=== PATIENT | female | born 1955 | race Caucasian/White ===

== ENCOUNTER 2024-03-18 14:00 | Outpatient (CLI) | payer MEDICARE ==
[2024-03-18 15:58] LABS: #Eosinphils 0.92 10x3/uL (0.0-0.5); #Monocytes 0.77 10x3/uL (0.0-1.1); %Basophils 1.1 % (0.0-2.0); %Eosinophils 10.2 % (0.0-6.0); %Lymphocytes 18.2 % (18.0-47.0); %Monocytes 8.5 % (0.0-10.0); %Neutrophils 61.8 % (40.0-75.0); Hematocrit 38.5 % (34.9-44.5); Hemoglobin 12.4 g/dL (12.0-15.5); Mean Corpuscular HGB CONC 32.2 g/dL (32.0-36.0); Mean Corpuscular Hemoglobin 32.5 pg (27.0-33.0); Mean Corpuscular Volume 100.8 fL (81.6-98.3); Mean Platelet Volume 10.6 fL (7.4-10.4); Platelet Count 287 10x3/uL (150-450); RBC Distribution Width 13.3 % (11.5-14.5); Red Blood Cell (RBC) Count 3.82 10x6/uL (3.90-5.03); White Blood Cell (WBC) Count 9.1 10x3/uL (3.5-10.5)
== END 2024-03-18 14:01 | disposition home or self-care (01) ==
LOC: LABBT 14:00
PROVIDERS: ATTEND Orthopaedic Surgery
DX: Z01.818 Encounter for other preprocedural examination (principal); G56.21 Lesion of ulnar nerve, right upper limb
CPT/HCPCS: 85025; 93005; 93010

== ENCOUNTER 2024-03-20 05:43 | Day surgery (SDC) | payer MEDICARE ==
[2024-03-18 14:35] VITALS: BMI 22.8
[2024-03-20] MEDS ORDERED: Bupivacaine PF 0.5% 30 ML VIAL ONE (06:26)
[2024-03-20] MEDS ORDERED: Lidocaine 1% PF 5 ML VIAL ONE (06:26)
[2024-03-20] MEDS ORDERED: Vancomycin 1 GM/200 ML (FROZEN) BAG ONE (06:31)
[2024-03-20] MEDS ORDERED: Bupivacaine 0.25% HCL 30 ML VIAL ONE (07:00)
[2024-03-20] MEDS ORDERED: EPINEPHrine 1 MG/ML VIAL ONE (07:00)
== END 2024-03-20 09:31 | disposition home or self-care (01) ==
LOC: SDC 05:43
PROVIDERS: ATTEND Orthopaedic Surgery
PROC: 01N40ZZ Release Ulnar Nerve, Open Approach (ICD-10-PCS; principal; 2024-03-20)
DX: G56.21 Lesion of ulnar nerve, right upper limb (principal); K21.9 Gastro-esophageal reflux disease without esophagitis; J45.909 Unspecified asthma, uncomplicated; Z88.5 Allergy status to narcotic agent; Z88.1 Allergy status to other antibiotic agents; Z88.2 Allergy status to sulfonamides; Z88.8 Allergy status to other drugs, medicaments and biological substances; Z79.899 Other long term (current) drug therapy
CPT/HCPCS: 64415; 64718; A6223; J0665; J3370; J0171

== ENCOUNTER 2024-05-16 14:03 | Outpatient (CLI) | payer MEDICARE ==
[2024-05-16 16:27] LABS: #Basophils 0.03 10x3/uL (0.0-0.2); #Eosinphils Less than 0.03 10x3/uL (0.0-0.7); %Basophils 0.2 % (0.0-1.0); %Lymphocytes 7.6 % (21.0-51.0); %Monocytes 5.6 % (0.0-10.0); %Neutrophils 86.2 % (42.0-75.0); Hematocrit 32.2 % (36.0-47.0); Hemoglobin 10.4 g/dL (12.0-16.0); Mean Corpuscular HGB CONC 32.3 g/dL (32.0-36.0); Mean Corpuscular Hemoglobin 31.7 pg (27.0-31.0); Mean Corpuscular Volume 98.2 fL (78.0-98.0); Platelet Count 280 10x3/uL (130-400); RBC Distribution Width 12.6 % (11.5-14.5); Red Blood Cell (RBC) Count 3.28 mill/uL (4.20-5.40)
[2024-05-16 18:48] LABS: Chloride 107 mmol/L (98-107); Potassium 3.8 mmol/L (3.5-5.1); Sodium 140 mmol/L (136-145)
[2024-05-16 18:49] LABS: Calcium 8.8 mg/dL (7.8-10.44); Glucose 135 mg/dL (80-115)
[2024-05-16 18:51] LABS: Anion Gap 13 mmol/L (10-20); Carbon Dioxide 24 mmol/L (23-31)
[2024-05-16 18:53] LABS: Calc. Creatinine Clearance 0 mL/min (70-130); Estimated GFR 95
[2024-05-16 18:54] LABS: BUN (Urea Nitrogen) 11 mg/dL (9.8-20.1)
== END 2024-05-16 14:04 | disposition home or self-care (01) ==
LOC: LABBT 14:03
PROVIDERS: ATTEND Orthopaedic Surgery
DX: Z01.818 Encounter for other preprocedural examination (principal); Z98.890 Other specified postprocedural states
CPT/HCPCS: 80048; 85025; 93005; 93010

== ENCOUNTER 2024-05-23 09:47 | Day surgery (SDC) | payer MEDICARE ==
[2024-05-16 14:32] VITALS: BMI 22.8
[2024-05-23] MEDS ORDERED: Sodium Chloride 0.9% 100 ML ONE (10:55)
[2024-05-23] MEDS ORDERED: Tranexamic Acid 1,000 MG/10 ML VIAL ONE (10:55)
[2024-05-23] MEDS ORDERED: Vancomycin 1 GM/200 ML (FROZEN) BAG ONE (10:56)
[2024-05-23] MEDS ORDERED: methylPREDNISolone Acetate 40 mg/ml Vial ONE (11:54)
[2024-05-23] MEDS ORDERED: Bupivacaine 0.25% HCL 30 ML VIAL ONE (11:55)
[2024-05-23] MEDS ORDERED: EPINEPHrine 1 MG/ML VIAL ONE (11:55)
[2024-05-23] MEDS ORDERED: Bupivacaine PF 0.5% 30 ML VIAL ONE (11:55)
[2024-05-23] MEDS ORDERED: Lidocaine 1% (PF) 30 ML VIAL ONE (11:55)
== END 2024-05-23 14:20 | disposition home or self-care (01) ==
LOC: SDC 09:47
PROVIDERS: ATTEND Orthopaedic Surgery
PROC: 01N40ZZ Release Ulnar Nerve, Open Approach (ICD-10-PCS; principal; 2024-05-23)
PROC: 0R9T3ZZ Drainage of Left Carpometacarpal Joint, Percutaneous Approach (ICD-10-PCS; 2024-05-23)
DX: G56.22 Lesion of ulnar nerve, left upper limb (principal); M18.12 Unilateral primary osteoarthritis of first carpometacarpal joint, left hand; K21.9 Gastro-esophageal reflux disease without esophagitis; J45.909 Unspecified asthma, uncomplicated; Z79.899 Other long term (current) drug therapy; Z98.890 Other specified postprocedural states; Z88.5 Allergy status to narcotic agent
CPT/HCPCS: 20600; 64718; A6223; J1030; J3370; J0171; J0665; J2001

== ENCOUNTER 2024-09-24 13:41 | Outpatient (CLI) | payer MEDICARE ==
[2024-09-24 15:19] LABS: #Basophils 0.05 10x3/uL (0.0-0.2); %Basophils 0.5 % (0.0-1.0); %Eosinophils 1.8 % (0.0-10.0); %Lymphocytes 14.1 % (21.0-51.0); %Neutrophils 76.4 % (42.0-75.0); Hematocrit 38.6 % (36.0-47.0); Hemoglobin 12.6 g/dL (12.0-16.0); Mean Corpuscular HGB CONC 32.6 g/dL (32.0-36.0); Mean Platelet Volume 10.7 fL (7.4-10.4); Platelet Count 268 10x3/uL (130-400); RBC Distribution Width 12.7 % (11.5-14.5); Red Blood Cell (RBC) Count 3.82 mill/uL (4.20-5.40)
[2024-09-24 15:33] LABS: INR-International Normal Ratio 0.9; Prothrombin Time 12.4 sec (12.0-14.7)
[2024-09-24 15:49] LABS: Anion Gap 11 mmol/L (10-20); BUN (Urea Nitrogen) 17 mg/dL (9.8-20.1); Calc. Creatinine Clearance 0 mL/min (70-130); Calcium 9.3 mg/dL (7.8-10.44); Carbon Dioxide 28 mmol/L (23-31); Chloride 104 mmol/L (98-107); Estimated GFR 98; Glucose 103 mg/dL (80-115); Potassium 4.2 mmol/L (3.5-5.1); Sodium 139 mmol/L (136-145)
== END 2024-09-24 13:42 | disposition home or self-care (01) ==
LOC: LABBT 13:41
PROVIDERS: ATTEND Orthopaedic Surgery
DX: Z01.818 Encounter for other preprocedural examination (principal); M18.12 Unilateral primary osteoarthritis of first carpometacarpal joint, left hand; M65.332 Trigger finger, left middle finger
CPT/HCPCS: 80048; 85025; 85610; 87081; 93005; 93010

== ENCOUNTER 2024-09-26 07:17 | Day surgery (SDC) | payer MEDICARE ==
[2024-09-24 14:40] VITALS: BMI 25.2
[2024-09-26] MEDS ORDERED: Dexamethasone 20 MG/5 ML VIAL ONE (07:26)
[2024-09-26] MEDS ORDERED: Lidocaine 1% PF 5 ML VIAL ONE (07:26)
[2024-09-26] MEDS ORDERED: Ondansetron PF 4 MG/2 ML Vial ONE (07:26)
[2024-09-26] MEDS ORDERED: fentaNYL PF 100 MCG/2 ML SYRINGE ONE (07:27)
[2024-09-26] MEDS ORDERED: PROPOFOL 0 ML ONE (07:27)
[2024-09-26] MEDS ORDERED: Midazolam HCl 2 mg/2 ml Vial ONE (07:27)
[2024-09-26] MEDS ORDERED: EPINEPHrine 1 MG/ML VIAL ONE (08:11)
[2024-09-26] MEDS ORDERED: Bupivacaine 0.25% HCL 30 ML VIAL ONE (08:11)
[2024-09-26] MEDS ORDERED: Famotidine/PF 20 mg/2ml Vial ONE (08:17)
[2024-09-26] MEDS ORDERED: Bupivacaine PF 0.5% 30 ML VIAL ONE (08:28)
[2024-09-26] MEDS ORDERED: CEFAZOLIN 2 GM VIAL ONE (08:31)
[2024-09-26] MEDS ORDERED: Vancomycin 1 GM/200 ML (FROZEN) BAG ONE (08:33)
== END 2024-09-26 11:47 | disposition home or self-care (01) ==
LOC: SDC 07:17
PROVIDERS: ATTEND Orthopaedic Surgery
PROC: 0LN80ZZ Release Left Hand Tendon, Open Approach (ICD-10-PCS; principal; 2024-09-26)
PROC: 0RRT0JZ Replacement of Left Carpometacarpal Joint with Synthetic Substitute, Open Approach (ICD-10-PCS; 2024-09-26)
PROC: 3E0T3BZ Introduction of Anesthetic Agent into Peripheral Nerves and Plexi, Percutaneous Approach (ICD-10-PCS; 2024-09-26)
DX: M65.332 Trigger finger, left middle finger (principal); M18.12 Unilateral primary osteoarthritis of first carpometacarpal joint, left hand; M18.11 Unilateral primary osteoarthritis of first carpometacarpal joint, right hand; Z88.8 Allergy status to other drugs, medicaments and biological substances; Z88.1 Allergy status to other antibiotic agents; Z88.5 Allergy status to narcotic agent; Z87.59 Personal history of other complications of pregnancy, childbirth and the puerperium; Z96.659 Presence of unspecified artificial knee joint
CPT/HCPCS: 25447; 26055; 64415; 73110; A6223; C1713 ×2; J0171; J0665 ×2; J3370; J3490; J1100; J2250; J2405; J2704